=== PATIENT | female | born 1970 | race Caucasian/White ===

== ENCOUNTER 2017-07-19 07:26 | Emergency (ER) | payer OTHER ==
[2017-07-19 08:05] VITALS: BP 151/94
--- NOTE | 2017-07-19 08:59 | UC ---
Upper Extremity HPI - HPI Summary HPI Summary: Pleasant 47 yo female c/o progressively worse R elbow pain. Radiates to shoulder. Hx neck surgery and neck pain, but this feels different. No p/d/w. 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 No report of recent injury. Works at a [employer]. No fever / chills. Seems worse at night. - History of Current Complaint Chief Complaint: UCUpperExtremity Stated Complaint: SHOULDER AND ELBOW PAIN Time Seen by Provider: 07/19/17 08:31 Hx Obtained From: Patient - Allergies/Home Medications Allergies/Adverse Reactions: Allergies Allergy/AdvReac Type Severity Reaction Status Date / Time No Known Allergies Allergy Verified 07/19/17 07:57 PMH/Surg Hx/FS Hx/Imm Hx Previously Healthy: Yes - see hpi - Surgical History Surgical History: Yes Surgery Procedure, Year, and Place: TUBAL 1989, CSP FUSION 2007. Hysterectomy 2006 - Family History Known Family History: Positive: Hypertension - Social History Alcohol Use: Rare Substance Use Type: None Smoking Status (MU): Never Smoked Tobacco Review of Systems Constitutional: Negative Skin: Negative Eyes: Negative ENT: Negative Respiratory: Negative Cardiovascular: Negative Gastrointestinal: Negative Genitourinary: Negative Motor: Other - see hpi Neurovascular: Other - see hpi Musculoskeletal: Arthralgia Neurological: Negative Psychological: Negative Is Patient Immunocompromised?: No All Other Systems Reviewed And Are Negative: Yes Physical Exam Triage Information Reviewed: Yes Appearance: Well-Nourished - painful with examination Vital Signs: Initial Vital Signs Temp 98.7 F 07/19/17 07:57 Pulse 73 07/19/17 07:57 Resp 16 07/19/17 07:57 BP 151/94 07/19/17 07:57 Pulse Ox 100 07/19/17 07:57 Vital Signs Reviewed: Yes Eye Exam: Normal ENT Exam: Normal Neck exam: Normal Neck: Positive: Supple Respiratory Exam: Normal Respiratory: Positive: Chest non-tender, Lungs clear Cardiovascular Exam: Normal Abdominal Exam: Normal Musculoskeletal Exam: Other - tender R post elbow, incl lat epic region. Distal r/u ppulses present. FROM wrist / hand / elbow. Painful elbow flexion and inversion. CR good. Tender r shoulder, ward deltoid, not focal. Neurological Exam: Normal - nonfocal. Distal sens present LT. Psychological Exam: Normal - conversing easily and appropriately Skin Exam: Normal Upper Extremity Course/Dx - Course Course Of Treatment: Reference #: [id number]. Reviewed R shoulder and R elbow xray report ([employer]). Sling for comfort. f/u Dr Barnett as scheduled this week. question posed answered to the best of my ability. Further eval and w/u recommended, but suspect lat epicondylitis. Pt is R handed - Differential Dx/Diagnosis Provider Diagnoses: Lat epicondylitis right Discharge - Discharge Plan Condition: Stable Disposition: HOME Prescriptions: HYDROcodone/ACETAMIN 5-325 MG* [Noel 5-325 TAB*] 1 tab PO Q6H PRN #16 tab MDD 4 PRN Reason: Pain Ibuprofen TAB* [Motrin TAB* 600 MG] 600 mg PO Q8H PRN #30 tab PRN Reason: Pain Patient Education Materials: Tennis Elbow (ED) Forms: *Work Release Referrals: Patria Barnett MD [Primary Care Provider] - Additional Instructions: Sling as needed for comfort. Follow up Dr. Barnett as scheduled.
--- NOTE | 2017-07-19 09:36 | RAD ---
INDICATION: Right shoulder and elbow pain COMPARISON: None. TECHNIQUE: 4 views of the right shoulder and 4 views of the right elbow. REPORT: The visualized bones are well corticated and properly aligned. There is no radiographically apparent fracture or dislocation. There is no radiographic evidence of pathologic joint effusion. The joint spaces are properly maintained. Partially visualized is a plate and screw fixator overlying the lower cervical spine. IMPRESSION: Normal radiographic series of the right shoulder and elbow. If the patient's symptoms persist further follow-up imaging is recommended.
== END 2017-07-19 10:00 | disposition home or self-care (01) ==
LOC: UCEAST 07:26
DX: M77.11 Lateral epicondylitis, right elbow (principal)
CPT/HCPCS: 99213; G0463

== ENCOUNTER 2018-06-26 10:21 | Emergency (ER) | payer OTHER ==
--- NOTE | 2018-06-26 11:35 | ED ---
Dizziness - HPI Summary HPI Summary: Patient is a 48-year-old female with a history of hypertension taking lisinopril 10 mg daily presents to the ED with one episode of dizziness and lightheadedness lasting approximately 30-45 minutes this morning. She states she was able to drink this morning well, and ate a half an Arabic muffin with peanut butter. She states symptoms began when she was sitting at her desk. She states she began to feel somewhat lightheaded and diaphoretic and began to feel shaky throughout her upper extremities. She has had this in the past, but they usually resolve after several minutes. She was concerned this time as this did not resolve, and called the ambulance. She denies any recent illness, fevers, sweats, chills. Denies any chest pain, shortness of breath, abdominal pain, nausea, vomiting, diarrhea, constipation or back pain. Denies any urinary symptoms. - History Of Current Complaint Chief Complaint: EDDizziness Stated Complaint: DIZZINESS Time Seen by Provider: 06/26/18 11:22 Hx Obtained From: Patient Timing: Constant Severity Initially: Moderate Severity Currently: Moderate Character: Lightheaded Aggravating Factor(s): Nothing Alleviating Factor(s): Lying Down Associated Signs And Symptoms: Positive: Other: - bilateral hand shaking. Negative: Nausea, Vomiting, Diarrhea, Diaphoresis, Visual Changes - Risk Factors Cardiac Risk Factors: Negative CVA Risk Factor: Negative - Allergies/Home Medications Allergies/Adverse Reactions: Allergies Allergy/AdvReac Type Severity Reaction Status Date / Time No Known Allergies Allergy Verified 07/19/17 07:57 PMH/Surg Hx/FS Hx/Imm Hx Previously Healthy: Yes Endocrine/Hematology History: Denies: Hx Diabetes, Hx Thyroid Disease Cardiovascular History: Denies: Hx Hypertension, Hx Pacemaker/ICD Respiratory History: Denies: Hx Asthma, Hx Chronic Obstructive Pulmonary Disease (COPD) GI History: Denies: Hx Ulcer Sensory History: Denies: Hx Hearing Aid Psychiatric History: Denies: Hx Panic Disorder - Surgical History Surgery Procedure, Year, and Place: TUBAL 1989, CSP FUSION 2007. Hysterectomy 2006 - Immunization History Hx Pertussis Vaccination: No Immunizations Up to Date: Yes Infectious Disease History: No Infectious Disease History: Denies: Hx Clostridium Difficile, Hx Hepatitis, Hx Human Immunodeficiency Virus (HIV), Hx of Known/Suspected MRSA, Hx Shingles, Hx Tuberculosis, Hx Known/ Suspected VRE, Hx Known/Suspected VRSA, History Other Infectious Disease, Traveled Outside the [place] in Last 30 Days - Family History Known Family History: Positive: Hypertension - Social History Occupation: Employed Full-time Lives: With Family Alcohol Use: Rare Hx Substance Use: No Substance Use Type: Reports: None Hx Tobacco Use: No Smoking Status (MU): Never Smoked Tobacco Review of Systems Constitutional: Negative Negative: Fever, Chills, Fatigue, Skin Diaphoresis Negative: Palpitations, Chest Pain Negative: Shortness Of Breath, Cough Genitourinary: Negative Positive: no symptoms reported, see HPI Negative: Arthralgia, Myalgia Skin: Negative Neurological: Negative All Other Systems Reviewed And Are Negative: Yes Physical Exam - Summary Physical Exam Summary: Appearance: WDW, comfortable, pleasant, alert Skin: Soft dry skin, no lesions. Nailbeds pink with no cyanosis or clubbing. No petechia noted. Eyes: RJ, EOMI, Conjunctiva pink with no redness or exudates. Mouth: Dentition without lesions. Moist mucosa Neck: Full range of motion. Palpable thyroid. Trachea at midline. No lymphadenopathy. Pulm: Chest symmetrical expansion. No deformities on posterior chest wall. Lungs clear to auscultation and percussion, without adventitious sounds. CV: No JVD. No deformities on anterior chest wall. Heart sounds. RRR. Normal S1 and single S2. No S3, S4, rubs, or murmurs. Carotids 2+ bilaterally without bruits. . exam not performed GI: Bowel sounds WNL in all 4 quadrants. No pain on deep palpation of all 4 quadrants. Negative dooley's, negative obturator. Psoas not performed. No pain over Mcburney's point. Musculoskeletal: Flexion and extension of neck without limitations. ROM WNL in all extremities. No deformities noted. Pulses +2 bilaterally. Neuro: Motor strength is 5/5 in upper and lower extremities bilaterally. A&OX3 Psych: Logical, coherent Triage Information Reviewed: Yes Vital Signs On Initial Exam: Initial Vitals Temp Pulse Resp BP Pulse Ox 97.5 F 93 16 172/92 98 06/26/18 10:22 06/26/18 10:22 06/26/18 10:22 06/26/18 10:22 06/26/18 10:22 Vital Signs Reviewed: Yes Appearance: Positive: Well-Appearing, Well-Nourished Skin: Positive: Warm, Skin Color Reflects Adequate Perfusion Head/Face: Positive: Normal Head/Face Inspection Eyes: Positive: EOMI, RJ, Conjunctiva Clear Cardiovascular: Positive: RRR, Pulses are Symmetrical in both Upper and Lower Extremities Musculoskeletal: Positive: Strength/ROM Intact Neurological: Positive: Sensory/Motor Intact, Alert, Oriented to Person Place, Time, Speech Normal Psychiatric: Positive: Normal, Affect/Mood Appropriate AVPU Assessment: Alert Diagnostics - Vital Signs Vital Signs Temp Pulse Resp BP Pulse Ox 06/26/18 10:22 97.5 F 93 16 172/92 98 - Laboratory Result Diagrams: 06/26/18 11:39 06/26/18 11:39 Lab Statement: Any lab studies that have been ordered have been reviewed, and results considered in the medical decision making process. Dizzy Course/Dx - Course Course Of Treatment: Patient is evaluated for acute episode of dizziness while sitting at her desk at work. Troponin obtained and are all WNL, EKG obtained. Labs obtained and are all WNL otherwise. Patient is feeling much improved. Walking well with a stable gait. She is OK for discharge at this time. - Diagnoses Differential Diagnosis/HQI/PQRI: Anxiety, Hyperventilation, Other - dizziness Provider Diagnoses: Dizziness Discharge - Sign-Out/Discharge Documenting (check all that apply): Patient Departure - Discharge Plan Condition: Stable Disposition: HOME Patient Education Materials: Dizziness (ED) Referrals: Patria Barnett MD [Primary Care Provider] - Additional Instructions: Drink plenty of water today Eat well Rest Follow up with your PCP in 2-3 days - Billing Disposition and Condition Condition: STABLE Disposition: Home
[2018-06-26 11:49] LABS: ABS Basophils 0 10^3/ul (0-0.2); ABS Eosinophils 0 10^3/ul (0-0.6); ABS Monocytes 0.5 10^3/ul (0-0.8); ABS Neutrophils 9.9 10^3/ul (1.5-7.7); ABS Nucleated RBC 0 10^3/ul; Eosinophil % 0.4 % (0-6); Hematocrit 38 % (35-47); Hemoglobin 13.1 g/dl (12.0-16.0); Lymphocyte % 8.4 % (25-47); Mean Corpuscular HGB Conc 34 g/dl (31-36); Mean Corpuscular Hemoglobin 29 pg (27-31); Mean Corpuscular Volume 86 fL (80-97); Mean Platelet Volume 7.9 um3 (7.4-10.4); Nucleated Red Blood Cells % 0; Platelet Count 315 10^3/ul (150-450); Red Blood Count 4.47 10^6/ul (4.00-5.40); Red Cell Distribution Width 13 % (10.5-15); White Blood Count 11.4 10^3/ul (3.5-10.8)
[2018-06-26 12:07] LABS: EGFR Non-African American 98.6 (>60)
[2018-06-26 12:49] VITALS: BP 148/84
== END 2018-06-26 12:57 | disposition home or self-care (01) ==
LOC: ED 10:21
DX: R42 Dizziness and giddiness (principal); I10 Essential (primary) hypertension
CPT/HCPCS: 36415; 80053; 82550; 83605; 84484; 85025; 86140; 93005; 99282